=== PATIENT | female | born 1965 | race Caucasian/White ===

== ENCOUNTER 2018-03-12 00:07 | Emergency (ER) | payer BC ==
[2018-03-12] MEDS ORDERED: NS 1,000 ML IV ONE (00:23)
[2018-03-12 00:42] LABS: PLATELET COUNT 267 10^3/uL (150-400)
[2018-03-12] MEDS ORDERED: fentaNYL 100 MCG/2 ML INJ IVP ONE (01:09)
--- NOTE | 2018-03-12 01:29 | EDPHY ---
General - History Smoking Status: Never smoked Time Seen by Provider: 03/12/18 00:21 Narrative: CLINICAL IMPRESSION: Abdominal pain, nausea and vomiting ASSESSMENT/PLAN: 52-year-old female visiting our area from [place] presents to the emergency department with approximately 9-10 hours of generalized upper abdominal pain associated with nausea and 2 episodes of nonbilious nonbloody vomiting. No associated chest pain, shortness of breath, fever or chills. Patient does have a significant past medical history of colon cancer diagnosed in 2002, post right hemicolectomy followed by 6 months of chemotherapy. Her last colonoscopy was 3 years ago. She has not had a CT scan and at least 5 years. Vital signs stable, initially hypotensive which improved with IV fluids. Pain well controlled with IV analgesics. X-rays show mildly dilated bowel loops in the left upper quadrant but no air-fluid levels or suggestion of SBO. The films were reviewed with the ED attending. Labs show a mild leukocytosis of 14 but no transaminitis, pancreatitis, electrolyte imbalance or renal insufficiency. I had multiple lengthy discussions with the patient regarding additional imaging by CT scan and she has elected to forego that at this time. She prefers to try water and if tolerates this would like to go home and try oral analgesics at home. She is scheduled to return to [place] at 6:00 p.m. Tomorrow but agrees to postpone her flight. She also agrees to return to the emergency department at any point for persistent or worsening abdominal pain. I strongly recommended reassessment in 24 hr. Warning signs for return to ED sooner were outlined and discharge papers and person. Case signed out to Dr. Alexandre at 0230 pending po challenge. DIFFERENTIAL DX: Abdominal pain includes but not limited to urinary tract infection, pyelonephritis, recurrent colon cancer, uterine fibroids, acute appendicitis, acute diverticulitis, small-bowel obstruction, constipation ED PROCEDURES: See lab and/or imaging results below ED COURSE: Labs reviewed by myself, leukocytosis of 14 noted. No other significant electrolyte imbalance or renal insufficiency 1:30 a.m.: X-ray results discussed with ED attending. Mildly dilated loops of bowel in the left upper quadrant, no air-fluid levels. I discussed diagnostic evaluation and results with the patient and her mother. We gave the option for CT imaging at this time versus oral analgesics and possible discharge home versus admission for pain control. Patient is supposed to catch a flight back to [place] at 6:00 p.m. Tomorrow but states she can adjust that flight if needed. They would like to discuss their options. She is requesting additional pain medication and has so far only received 50 mcg of fentanyl. CHIEF COMPLAINT: Abdominal pain, nausea, vomiting HPI: 52-year-old female visiting our area from [place] presents to the emergency department with her mother for concerns of generalized upper abdominal pain associated with nausea and vomiting. Symptoms started at approximately 4:00 p.m. This evening. Patient had whole foods for lunch with her dad who is not ill. She was feeling tired earlier today but otherwise had no physical complaints. She reports generalized upper abdominal pain, no associated chest pain or shortness of breath. She has a significant past medical history of colon cancer in 2002, status post right hemicolectomy and 6 months of chemotherapy. Her last colonoscopy was at least 3 years ago. She reports her colon cancer was detected when she had a bowel obstruction. She did have a bowel movement this morning, took senna capsules thinking she was constipated and her pain began shortly after this. She has been passing small amounts of gas this evening but has not had a bowel movement. She denies UTI symptoms. No radiating pain to the flank. She did not take anything at home for pain. She initially is declining analgesics in the ED. Patient's brother apparently unexpectedly and suddenly while on a sailboat in [place] 2 weeks ago. They think this was due to food poisoning, although a definitive cause of was never provided. PAST MEDICAL HISTORY: Colon cancer See nurse/triage notes for additional history if applicable Pertinent Past Surgical History: Right hemicolectomy in 2002 Family History: Family history of colon cancer in patient's grandmother Social History: Nonsmoker, drinks socially, visiting from [place] REVIEW OF SYSTEMS: All other systems negative Constitutional: No fever, no chills, positive for appetite change. Cardiovascular: No chest pain, no palpitations. Respiratory: No cough, no shortness of breath. Gastrointestinal: Positive for abdominal pain, nausea and vomiting Genitourinary: No hematuria, dysuria, flank pain, pelvic pain Musculoskeletal: No back pain, joint swelling, joint pain, myalgias. Skin: No rashes, color change. PHYSICAL EXAM: General Appearance: Alert, oriented, appropriate, cooperative, appears mildly uncomfortable, well hydrated, non-toxic appearing, hypotensive, afebrile, remainder of vital signs stable, no hypoxia. HEENT: Oropharynx clear is no erythema or exudates, no tonsillar hypertrophy or asymmetry. Dentition without abnormality. Respiratory: There are no retractions, lungs are clear to auscultation. Cardiac: Regular rate and rhythm, no murmurs or gallops. Gastrointestinal: Abdomen is soft, generalized discomfort throughout, bowel sounds normal, no masses/hernia, no rigidity, guarding or focal peritoneal findings. Neurological: [ Alert and oriented x 3 Skin: Warm, dry, no rashes, no nodules on palpation. MEDICAL DECISION MAKING: Patient was seen independently. Secondary supervising physician at time of evaluation was Dr Alexandre. Diagnosis: Abdominal pain, nausea and vomiting . New, requires workup Summary: See Assessment and Plan for summary of ED visit Clinical lab tests: ordered / reviewed. Independent visualization of images, tracing, or specimens: Yes. Decision to obtain medical records or history from someone other than the patient: Patient's mother Review / Summarize previous medical records: None available Discussed patient with another provider: Dr Alexandre Patient Progress: Stable at time of sign-out. (Pradeep Olson) PHYSICIAN DOCUMENTATION: The patient was evaluated and managed by the Physician Ski Molder. My co- signature indicates that I have reviewed this chart and I agree with the findings and plan of care as documented. I am the secondary supervising physician. The patient was ultimately able to tolerate p. O. Challenge and was discharged from the emergency department. (Yecenia Alexandre) - Objective Vital Signs: Initial Vital Signs Temperature (C) 36.5 C 03/12/18 00:12 Heart Rate 69 03/12/18 00:12 Respiratory Rate 16 03/12/18 00:12 Blood Pressure 97/55 L 03/12/18 00:12 O2 Sat (%) 98 03/12/18 00:12 O2 Delivery Mode Room Air Allergies/Adverse Reactions: No Known Allergies Allergy (Unverified 03/12/18 00:10) Home Medications: Medication Instructions Recorded NK [No Known Home Meds] 03/12/18 Laboratory Results: Laboratory Results 03/12/18 00:30 03/12/18 00:30 03/12/18 03/12/18 00:30 00:30 WBC 14.48 10^3/uL H 10^3/uL (3.80-9.50) RBC 4.21 10^6/uL 10^6/uL (4.18-5.33) Hgb 13.0 g/dL g/dL (12.6-16.3) Hct 38.4 % % (38.0-47.0) MCV 91.2 fL fL (81.5-99.8) MCH 30.9 pg pg (27.9-34.1) MCHC 33.9 g/dL g/dL (32.4-36.7) RDW 12.5 % % (11.5-15.2) Plt Count 267 10^3/uL 10^3/uL (150-400) MPV 11.2 fL fL (8.7-11.7) Neut % (Auto) 81.2 % H % (39.3-74.2) Lymph % (Auto) 12.4 % L % (15.0-45.0) [place] % (Auto) 4.9 % % (4.5-13.0) Eos % (Auto) 0.9 % % (0.6-7.6) Baso % (Auto) 0.3 % % (0.3-1.7) Nucleat RBC Rel Count 0.0 % % (0.0-0.2) Absolute Neuts (auto) 11.76 10^3/uL H 10^3/uL (1.70-6.50) Absolute Lymphs (auto) 1.79 10^3/uL 10^3/uL (1.00-3.00) Absolute Monos (auto) 0.71 10^3/uL 10^3/uL (0.30-0.80) Absolute Eos (auto) 0.13 10^3/uL 10^3/uL (0.03-0.40) Absolute Basos (auto) 0.05 10^3/uL 10^3/uL (0.02-0.10) Absolute Nucleated RBC 0.00 10^3/uL 10^3/uL (0-0.01) Immature Gran % 0.3 % % (0.0-1.1) Immature Gran # 0.04 10^3/uL 10^3/uL (0.00-0.10) Sodium 138 mEq/L mEq/L (135-145) Potassium 4.0 mEq/L mEq/L (3.5-5.2) Chloride 108 mEq/L mEq/L (97-110) Carbon Dioxide 21 mEq/l L mEq/l (22-31) Anion Gap 9 mEq/L mEq/L (6-14) BUN 15 mg/dL mg/dL (7-23) Creatinine 0.9 mg/dL mg/dL (0.6-1.0) Estimated GFR > 60 Glucose 115 mg/dL H mg/dL (70-100) Calcium 9.8 mg/dL mg/dL (8.5-10.4) Total Bilirubin 0.6 mg/dL mg/dL (0.1-1.4) Conjugated Bilirubin 0.2 mg/dL mg/dL (0.0-0.5) Unconjugated Bilirubin 0.4 mg/dL mg/dL (0.0-1.1) AST 27 IU/L IU/L (14-46) ALT 32 IU/L IU/L (9-52) Alkaline Phosphatase 82 IU/L IU/L (38-126) Total Protein 7.1 g/dL g/dL (6.3-8.2) Albumin 4.5 g/dL g/dL (3.5-5.0) Lipase 78 IU/L IU/L (23-300) Medications Given: Discontinued Medications Fentanyl (Sublimaze) 50 mcg IVP EDNOW ONE Stop: 03/12/18 01:10 Last Admin: 03/12/18 01:20 Dose: 50 mcg Hydromorphone HCl (Dilaudid) 0.5 mg IVP EDNOW ONE Stop: 03/12/18 02:06 Last Admin: 03/12/18 02:10 Dose: 0.5 mg Sodium Chloride (Ns) 1,000 mls @ 0 mls/hr IV EDNOW ONE; Wide Open PRN Reason: Protocol Stop: 03/12/18 00:24 Last Admin: 03/12/18 00:50 Dose: 1,000 mls Ondansetron HCl (Zofran Odt 4 Mg Prepack#2) 1 btl TAKEHOME EDNOW ONE Stop: 03/12/18 02:27 Last Admin: 03/12/18 03:07 Dose: 1 btl Oxycodone/Acetaminophen (Percocet 5/325mg Prepack#4) 1 btl TAKEHOME EDNOW ONE Stop: 03/12/18 02:26 Last Admin: 03/12/18 03:06 Dose: 1 btl Departure - Departure Disposition: Home, Routine, Self-Care Clinical Impression: Abdominal pain Qualifiers: Abdominal location: generalized Qualified Code(s): R10.84 - Generalized abdominal pain Nausea and vomiting Qualifiers: Vomiting type: unspecified Vomiting Intractability: non-intractable Qualified Code(s): R11.2 - Nausea with vomiting, unspecified Condition: Fair Instructions: Oxycodone/Acetaminophen (By mouth), Ondansetron (By mouth), Acute Nausea and Vomiting (ED), Acute Abdominal Pain (ED) Additional Instructions: DISCHARGE INSTRUCTIONS FROM YOUR DOCTOR Thank you for visiting our emergency department today. Please keep in mind that discharge from the emergency department does not mean that there is nothing wrong - it simply means that we have not identified an emergency condition that requires further evaluation or treatment in the hospital. You should always plan to follow up with primary care for re-evaluation of your condition in the next 2-3 days. If you have been referred to a specialist, please call as soon as possible (today or tomorrow) to schedule your follow up appointment at the appropriate time. [ DIAGNOSTIC WORKUP IN THE EMERGENCY DEPARTMENT TONIGHT INCLUDED AN X-RAY OF THE ABDOMEN, EKG, AND LAB WORK. YOU HAVE A MILD ELEVATION IN YOUR INFECTION FIGHTING COUNT WITH A WHITE COUNT OF 14. OTHERWISE LIVER ENZYMES, PANCREATIC ENZYMES, ELECTROLYTES, AND RENAL FUNCTIONS APPEAR NORMAL. X-RAY SHOWS SOME MILD DILATION OF BOWEL LOOPS IN THE LEFT UPPER QUADRANT BUT NO OBVIOUS AIR- FLUID LEVELS OR OBVIOUS SMALL-BOWEL OBSTRUCTION. WE DID DISCUSS AN OFFER A CT SCAN OF THE ABDOMEN AND PELVIS TO FURTHER EVALUATE HER ABDOMINAL PAIN GIVEN HER HISTORY OF COLON CANCER. YOU HAVE ELECTED TO DECLINE AT THIS TIME. WE ARE DISCHARGING YOU WITH ORAL TAKE HOME PAIN MEDICATION AND NAUSEA MEDICINE TO USE NEEDED. PLEASE CONSIDER RETURNING TO THE EMERGENCY DEPARTMENT AT ANY POINT IN THE NEXT 24 HR WITH PERSISTENT OR WORSENING ABDOMINAL PAIN, PERSISTENT NAUSEA AND VOMITING, DEVELOPMENT OF FEVER GREATER THAN 100.4, CHEST PAIN, SHORTNESS OF BREATH, OR ANY OTHER SYMPTOMS. DO NOT DRIVE OR DRINK ALCOHOL WHILE TAKING NARCOTIC PAIN MEDICATION. PLEASE BE AWARE, NARCOTICS CAN CAUSE CONSTIPATION, LETHARGY, AND INCREASE YOUR RISK OF FALLING. DO NOT TAKE TYLENOL AT THE SAME TIME VICODIN OR PERCOCET. People present with illnesses and injuries in different ways, and it is always possible that we have missed something. You may always return for re-evaluation if symptoms worsen or if they are not improving or if you develop new/different symptoms. Again, thank you for choosing our emergency department. We hope that you feel better. Referrals: NONE *PRIMARY CARE P,. [Primary Care Provider] - As per Instructions
[2018-03-12] MEDS ORDERED: HYDROmorphONE/DILAUDID 2 MG/ML INJ IVP ONE (02:05)
[2018-03-12] MEDS ORDERED: OXYCODONE/APAP 5/325MG PREPACK#4 BTL TAKEHOME ONE (02:25)
[2018-03-12] MEDS ORDERED: ONDANSETRON 4MG PREPACK#2 BTL TAKEHOME ONE (02:26)
[2018-03-12 03:25] VITALS: BP 109/77
== END 2018-03-12 03:25 | disposition home or self-care (01) ==
DX: R10.84 Generalized abdominal pain (principal); R11.2 Nausea with vomiting, unspecified; E86.9 Volume depletion, unspecified; Z85.038 Personal history of other malignant neoplasm of large intestine
CPT/HCPCS: 96374; J1170; J3010